=== PATIENT | male | born 1950 | race Caucasian/White ===

== ENCOUNTER 2016-12-23 12:17 | Emergency (ER) | payer MEDICARE, BC ==
[2016-12-23] MEDS ORDERED: Sodium Chloride 0.9% 10 ML Syringe FLUSH PRN (12:30)
[2016-12-23] MEDS ORDERED: Piperacillin/Tazobactam 4.5 GM in Sodium Chloride 0.9% 100 ML IV ONE (12:42)
[2016-12-23] MEDS ORDERED: Ciprofloxacin in D5W 400 MG in Premix Bag 1 BAG IV ONE ×2 (12:45)
--- NOTE | 2016-12-23 13:09 | EDM.PDOC ---
ED HPI GENERAL MEDICAL PROBLEM - General Chief Complaint: Respiratory Problem Stated Complaint: cough Time Seen by Provider: 12/23/16 12:26 Source of Information: Reports: Patient History Limitations: Reports: No Limitations - History of Present Illness INITIAL COMMENTS - FREE TEXT/NARRATIVE: Patient presents with chronic cough that started over the last couple of days. He was to see Dr. Scherer at the [facility] yesterday and started on Augmentin. It was noted December 16, on a visit with her that he had some parotid hypertrophy. This is still present. Still has a sore throat. He has additional complaints that include a sore throat, persistant cough, chills, fever, denies chest pain but does have increased SOB. He denies nausea/vomiting , no change in LOC, he is breathing quickly and febrile on presentation. He has a significant medical history including metastatic prostate CA, diastolic heart failure, CABG, htn, carotid artery disease, coronary artery disease, hyperlipidemia. Still drinks 1-2 drinks of jennifer nightly. No smoking. Onset: Gradual Duration: Getting Worse Location: Reports: Neck, Chest Quality: Reports: Ache Severity: Moderate Worsens with: Reports: Breathing, Movement Associated Symptoms: Reports: cough w sputum, Diaphoresis, Fever/Chills, Shortness of Breath - Related Data Allergies Allergy/AdvReac Type Severity Reaction Status Date / Time No Known Allergies Allergy Verified 12/23/16 12:39 Home Meds: Home Meds Atenolol [Tenormin] 0.5 tab PO BID 10/06/14 [History] Furosemide [Furosemide] 1 tab PO DAILY 10/06/14 [History] Simvastatin [Simvastatin] 1 tab PO DAILY 10/06/14 [History] Aspirin 81 mg PO BEDTIME 06/28/16 [History] Calcium Carbonate/Vitamin D3 [Calcium 500 + Vit D 400] 1 each PO DAILY 06/28/16 [History] Cholecalciferol (Vitamin D3) [Vitamin D3] 1,000 unit PO BID 06/28/16 [History] Leuprolide Acetate [Eligard] 22.5 mg SQ ASDIRECTED 06/28/16 [History] Multivitamin [Multivitamins] 1 each PO DAILY 06/28/16 [History] Nitroglycerin [Nitrostat] 0.4 mg SL Q5M PRN 06/28/16 [History] Ubidecarenone [Co Q-10] 50 mg PO DAILY 06/28/16 [History] Alprostadil [[place]] 1,000 mcg UR 12/23/16 [History] Amoxicillin/Potassium Clav [Amox-Clav 875-125 mg Tablet] 1 tab BID 12/23/16 [ History] Bicalutamide [Casodex] 50 mg PO DAILY 12/23/16 [History] Zolpidem [Ambien] 12/23/16 [History] predniSONE [Prednisone] 7.5 mg PO 12/23/16 [History] Past Medical History Cardiovascular History: Reports: Bypass, CAD, Heart Failure, High Cholesterol, Hypertension Respiratory History: Reports: Intubation, Difficult Other Respiratory History: dyspnea on exertion Musculoskeletal History: Reports: Other (See Below) Other Musculoskeletal History: Chronic right shoulder and left hip pain Endocrine/Metabolic History: Reports: Other (See Below) Other Endocrine/Metabolic History: hyperglycemia Oncologic (Cancer) History: Reports: Prostate, Other (See Below) Other Oncologic History: GI tract - Past Surgical History Cardiovascular Surgical History: Reports: Coronary Artery Bypass Social & Family History - Alcohol Use Days Per Week of Alcohol Use: 7 Number of Drinks Per Day: 2 Total Drinks Per Week: 14 - Recreational Drug Use Recreational Drug Use: No ED ROS GENERAL - Review of Systems Review Of Systems: See Below Constitutional: Reports: Fever, Chills HEENT: Reports: No Symptoms Respiratory: Reports: Shortness of Breath Cardiovascular: Reports: Dyspnea on Exertion Endocrine: Reports: No Symptoms GI/Abdominal: Reports: No Symptoms : Reports: No Symptoms Musculoskeletal: Reports: No Symptoms Skin: Reports: No Symptoms Neurological: Reports: No Symptoms Psychiatric: Reports: No Symptoms Hematologic/Lymphatic: Reports: No Symptoms Immunologic: Reports: No Symptoms ED EXAM, GENERAL - Physical Exam Exam: See Below Exam Limited By: No Limitations General Appearance: Alert, WD/WN, Mild Distress Eye Exam: Bilateral Eye: EOMI, PERRL Ears: Normal External Exam, Normal Canal, Hearing Grossly Normal, Normal TMs Nose: Normal Inspection Throat/Mouth: Normal Inspection, Normal Oropharynx Head: Atraumatic, Normocephalic Neck: Non-Tender, Other (parotid hypertrophy) Respiratory/Chest: No Respiratory Distress, No Accessory Muscle Use, Chest Non- Tender, Rhonchi (minimal with scattered sounds that improved post cough) Cardiovascular: Regular Rate, Rhythm, No Gallop, No JVD, No Murmur Peripheral Pulses: 1+: Posterior Tibial (L), Posterior Tibial (R), Dorsalis Pedis (L), Dorsalis Pedis (R) GI/Abdominal: Non-Tender, No Abnormal Bruit, Distended, Rigid Extremities: Normal Range of Motion, Non-Tender, Pedal Edema, Slow Capillary Refill, Joint Swelling Neurological: Alert, Oriented, CN II-XII Intact, Normal Cognition, Normal Gait, Normal Reflexes, No Motor/Sensory Deficits Psychiatric: Normal Affect, Normal Mood Skin Exam: Warm, Dry, Intact, Normal Color, No Rash Course - Vital Signs Last Recorded V/S: Last Vital Signs Temp 39.0 C H 12/23/16 14:52 Pulse 82 12/23/16 14:52 Resp 32 H 12/23/16 14:52 BP 112/64 12/23/16 14:52 Pulse Ox 91 L 12/23/16 15:15 - Orders/Labs/Meds Orders: Active Orders 24 hr Category Date Time Status EKG 12 Lead [EKG Documentation Completion] [] ROUTINE Care 12/23/16 12:30 Active Oxygen Therapy Adult [Oxygen Therapy, ED] [] Care 12/23/16 15:11 Ordered ASDIRECTED RT Aerosol Therapy [RC] ASDIRECTED Care 12/23/16 14:22 Active Chest 2V [CR] Stat Exams 12/23/16 12:26 Taken CULTURE BLOOD [BC] Stat Lab 12/23/16 12:45 Received CULTURE BLOOD [BC] Stat Lab 12/23/16 12:54 Received Sodium Chloride 0.9% [Saline Flush] Med 12/23/16 12:30 Active 10 ml FLUSH ASDIRECTED PRN Blood Culture x2 Reflex Set [OM.PC] Stat Oth 12/23/16 12:26 Ordered Saline Lock Insert [OM.PC] Routine Oth 12/23/16 12:30 Ordered Medication Orders Sodium Chloride (Saline Flush) 10 ml FLUSH ASDIRECTED PRN PRN Reason: Keep Vein Open Labs: Laboratory Tests 12/23/16 12/23/16 12/23/16 Range/Units 12:45 12:45 12:45 WBC 11.2 H (4.0-10.0) x10^3/uL RBC 4.58 (4.5-6.0) x10^6/uL Hgb 14.3 (14.0-18.0) g/dL Hct 43.0 (40.0-52.0) % MCV 93.9 H (78.0-93.0) fL MCH 31.2 (26.0-32.0) pg MCHC 33.3 (32.0-36.0) g/dL RDW Coeff of Ebenezer 14.4 (10.0-15.0) % Plt Count 146 (130-400) x10^3/uL Neut % (Auto) 82.2 H (50.0-80.0) % Lymph % (Auto) 9.0 L (25.0-50.0) % [place] % (Auto) 7.4 (2.0-11.0) % Eos % (Auto) 1.0 (0.0-4.0) % Baso % (Auto) 0.4 (0.2-1.2) % PT 11.0 (10.0-12.8) SEC INR 1.0 L (2.0-3.5) D-Dimer, Quantitative 0.53 (<=0.58) mg/LFEU POC ABG pH (7.35-7.45) POC ABG pCO2 (35-45) mmHG POC ABG pO2 (80-105) mmHG POC ABG HCO3 (22-26) mmol/L POC ABG Total CO2 (23-27) mmol/L POC ABG O2 Sat (95-98) % POC ABG Base Excess (-2-3) mmol/L POC FiO2 Sodium 141 (136-145) mmol/L Potassium 4.2 (3.5-5.1) mmol/L Chloride 103 (98-107) mmol/L Carbon Dioxide 28 (21-32) mmol/L BUN 16 (7-18) mg/dL Creatinine 1.3 (0.70-1.30) mg/dL Est Cr Clr Drug Dosing TNP Estimated GFR (MDRD) 55 Glucose 124 H (74-106) mg/dL Lactic Acid (0.4-2.0) mmol/L Calcium 8.9 (8.5-10.1) mg/dL Corrected Calcium 8.50 (8.5-10.1) mg/dL Total Bilirubin 1.3 H (0.2-1.0) mg/dL AST 37 (15-37) U/L ALT 49 (16-63) U/L Alkaline Phosphatase 120 H (46-116) U/L Creatine Kinase 41 (39-308) U/L Creatine Kinase Index TNP CK-MB (CK-2) TNP Troponin I < 0.017 (<=0.056) ng/mL C-Reactive Protein (<=0.9) mg/dL B-Natriuretic Peptide 671 H (<=125) pg/mL Total Protein 7.6 (6.4-8.2) g/dL Albumin 4.5 (3.4-5.0) g/dL Globulin 3.1 Albumin/Globulin Ratio 1.45 TSH, Ultra Sensitive 2.624 (0.358-3.74) uIU/mL POC Result Comm Urine Color (YELLOW) Urine Appearance (CLEAR) Urine pH (5.0-8.0) Ur Specific [place] Urine Protein (NEGATIVE) mg/dL Urine Glucose (UA) (NEGATIVE) mg/dL Urine Ketones (NEGATIVE) mg/dL Urine Occult Blood (NEGATIVE) Urine Nitrite (NEGATIVE) Urine Bilirubin (NEGATIVE) Urine Urobilinogen (0.2) EU/dL Ur Leukocyte Esterase (NEGATIVE) Urine RBC (NOT SEEN) /HPF Urine WBC (NOT SEEN) /HPF Ur Squamous Epith Cells (NEGATIVE) /HPF Urine Bacteria (NEGATIVE) /HPF Urine Mucus (NEGATIVE) /LPF 12/23/16 12/23/16 12/23/16 Range/Units 12:45 13:06 13:30 WBC (4.0-10.0) x10^3/uL RBC (4.5-6.0) x10^6/uL Hgb (14.0-18.0) g/dL Hct (40.0-52.0) % MCV (78.0-93.0) fL MCH (26.0-32.0) pg MCHC (32.0-36.0) g/dL RDW Coeff of Ebenezer (10.0-15.0) % Plt Count (130-400) x10^3/uL Neut % (Auto) (50.0-80.0) % Lymph % (Auto) (25.0-50.0) % [place] % (Auto) (2.0-11.0) % Eos % (Auto) (0.0-4.0) % Baso % (Auto) (0.2-1.2) % PT (10.0-12.8) SEC INR (2.0-3.5) D-Dimer, Quantitative (<=0.58) mg/LFEU POC ABG pH 7.435 (7.35-7.45) POC ABG pCO2 35 (35-45) mmHG POC ABG pO2 44 L* (80-105) mmHG POC ABG HCO3 23 (22-26) mmol/L POC ABG Total CO2 24 (23-27) mmol/L POC ABG O2 Sat 82 L (95-98) % POC ABG Base Excess -1 (-2-3) mmol/L POC FiO2 0.21 Sodium (136-145) mmol/L Potassium (3.5-5.1) mmol/L Chloride (98-107) mmol/L Carbon Dioxide (21-32) mmol/L BUN (7-18) mg/dL Creatinine (0.70-1.30) mg/dL Est Cr Clr Drug Dosing Estimated GFR (MDRD) Glucose (74-106) mg/dL Lactic Acid 1.4 (0.4-2.0) mmol/L Calcium (8.5-10.1) mg/dL Corrected Calcium (8.5-10.1) mg/dL Total Bilirubin (0.2-1.0) mg/dL AST (15-37) U/L ALT (16-63) U/L Alkaline Phosphatase (46-116) U/L Creatine Kinase (39-308) U/L Creatine Kinase Index CK-MB (CK-2) Troponin I (<=0.056) ng/mL C-Reactive Protein (<=0.9) mg/dL B-Natriuretic Peptide (<=125) pg/mL Total Protein (6.4-8.2) g/dL Albumin (3.4-5.0) g/dL Globulin Albumin/Globulin Ratio TSH, Ultra Sensitive (0.358-3.74) uIU/mL POC Result Comm Called critical res Urine Color Yellow (YELLOW) Urine Appearance Clear (CLEAR) Urine pH 5.0 (5.0-8.0) Ur Specific [place] 1.010 Urine Protein Negative (NEGATIVE) mg/dL Urine Glucose (UA) Negative (NEGATIVE) mg/dL Urine Ketones Negative (NEGATIVE) mg/dL Urine Occult Blood Negative (NEGATIVE) Urine Nitrite Negative (NEGATIVE) Urine Bilirubin Negative (NEGATIVE) Urine Urobilinogen 0.2 (0.2) EU/dL Ur Leukocyte Esterase Negative (NEGATIVE) Urine RBC 0-5 (NOT SEEN) /HPF Urine WBC 0-5 (NOT SEEN) /HPF Ur Squamous Epith Cells Not seen (NEGATIVE) /HPF Urine Bacteria Rare (NEGATIVE) /HPF Urine Mucus Not seen (NEGATIVE) /LPF 12/23/16 Range/Units 13:45 WBC (4.0-10.0) x10^3/uL RBC (4.5-6.0) x10^6/uL Hgb (14.0-18.0) g/dL Hct (40.0-52.0) % MCV (78.0-93.0) fL MCH (26.0-32.0) pg MCHC (32.0-36.0) g/dL RDW Coeff of Ebenezer (10.0-15.0) % Plt Count (130-400) x10^3/uL Neut % (Auto) (50.0-80.0) % Lymph % (Auto) (25.0-50.0) % [place] % (Auto) (2.0-11.0) % Eos % (Auto) (0.0-4.0) % Baso % (Auto) (0.2-1.2) % PT (10.0-12.8) SEC INR (2.0-3.5) D-Dimer, Quantitative (<=0.58) mg/LFEU POC ABG pH (7.35-7.45) POC ABG pCO2 (35-45) mmHG POC ABG pO2 (80-105) mmHG POC ABG HCO3 (22-26) mmol/L POC ABG Total CO2 (23-27) mmol/L POC ABG O2 Sat (95-98) % POC ABG Base Excess (-2-3) mmol/L POC FiO2 Sodium (136-145) mmol/L Potassium (3.5-5.1) mmol/L Chloride (98-107) mmol/L Carbon Dioxide (21-32) mmol/L BUN (7-18) mg/dL Creatinine (0.70-1.30) mg/dL Est Cr Clr Drug Dosing Estimated GFR (MDRD) Glucose (74-106) mg/dL Lactic Acid (0.4-2.0) mmol/L Calcium (8.5-10.1) mg/dL Corrected Calcium (8.5-10.1) mg/dL Total Bilirubin (0.2-1.0) mg/dL AST (15-37) U/L ALT (16-63) U/L Alkaline Phosphatase (46-116) U/L Creatine Kinase (39-308) U/L Creatine Kinase Index CK-MB (CK-2) Troponin I (<=0.056) ng/mL C-Reactive Protein 2.1 H (<=0.9) mg/dL B-Natriuretic Peptide (<=125) pg/mL Total Protein (6.4-8.2) g/dL Albumin (3.4-5.0) g/dL Globulin Albumin/Globulin Ratio TSH, Ultra Sensitive (0.358-3.74) uIU/mL POC Result Comm Urine Color (YELLOW) Urine Appearance (CLEAR) Urine pH (5.0-8.0) Ur Specific [place] Urine Protein (NEGATIVE) mg/dL Urine Glucose (UA) (NEGATIVE) mg/dL Urine Ketones (NEGATIVE) mg/dL Urine Occult Blood (NEGATIVE) Urine Nitrite (NEGATIVE) Urine Bilirubin (NEGATIVE) Urine Urobilinogen (0.2) EU/dL Ur Leukocyte Esterase (NEGATIVE) Urine RBC (NOT SEEN) /HPF Urine WBC (NOT SEEN) /HPF Ur Squamous Epith Cells (NEGATIVE) /HPF Urine Bacteria (NEGATIVE) /HPF Urine Mucus (NEGATIVE) /LPF Meds: Medications Generic Name Dose Route Start Last Admin Trade Name Freq PRN Reason Stop Dose Admin Sodium Chloride 10 ml 12/23/16 12:30 Saline Flush FLUSH ASDIRECTED PRN Keep Vein Open Discontinued Medications Generic Name Dose Route Start Last Admin Trade Name Freq PRN Reason Stop Dose Admin Albuterol/Ipratropium 3 ml 12/23/16 14:22 12/23/16 14:56 Duoneb 3.0-0.5 Mg/3 Ml NEB 12/23/16 14:23 3 ml ONETIME ONE Administration Ciprofloxacin/Dextrose 400 mg/ 200 mls @ 200 mls/hr 12/23/16 12:45 12/23/16 13:47 Premix IV 12/23/16 13:44 200 mls/hr ONETIME ONE Administration Piperacillin Sod/Tazobactam 100 mls @ 200 mls/hr 12/23/16 12:42 12/23/16 13: 09 Sod 4.5 gm/ Sodium Chloride IV 12/23/16 13:11 200 mls/hr ONETIME ONE Administration Vancomycin HCl 1,500 mg/ 250 mls @ 167 mls/hr 12/23/16 12:42 12/23/16 14:57 Sodium Chloride IV 12/23/16 14:11 167 mls/hr ONETIME ONE Administration - Re-Assessments/Exams Free Text/Narrative Re-Assessment/Exam: 12/23/16 15:05 x-ray reviewed, possible mass in upper right chest? Labs reviewed. D-dimer is negative, hypoxic. 12/23/16 15:[address] Review [address] Dr[address] Scherer, she is recommending he go to [facility] for further testing to rule out additional malignancy issues, visited with Dr. Velasquez in [place] at [place]. He will accept. Departure - Departure Time of Disposition: 15:40 Disposition: DC/Tfer to [facility] 02 Condition: Fair Clinical Impression: Hypoxia - Discharge Information Referrals: Linnea Scherer MD [Primary Care Provider] - Forms: ED Department Discharge, Interfacility Transfer EMTALA - My Orders Last 24 Hours: My Active Orders 12/23/16 12:26 Chest 2V [CR] Stat Blood Culture x2 Reflex Set [OM.PC] Stat 12/23/16 12:30 EKG 12 Lead [EKG Documentation Completion] [RC] ROUTINE Sodium Chloride 0.9% [Saline Flush] 10 ml FLUSH ASDIRECTED PRN Saline Lock Insert [OM.PC] Routine 12/23/16 12:45 CULTURE BLOOD [BC] Stat 12/23/16 12:54 CULTURE BLOOD [BC] Stat 12/23/16 14:22 RT Aerosol Therapy [RC] ASDIRECTED 12/23/16 15:11 Oxygen Therapy Adult [Oxygen Therapy, ED] [RC] ASDIRECTED - Assessment/Plan Last 24 Hours: My Active Orders 12/23/16 12:26 Chest 2V [CR] Stat Blood Culture x2 Reflex Set [OM.PC] Stat 12/23/16 12:30 EKG 12 Lead [EKG Documentation Completion] [RC] ROUTINE Sodium Chloride 0.9% [Saline Flush] 10 ml FLUSH ASDIRECTED PRN Saline Lock Insert [OM.PC] Routine 12/23/16 12:45 CULTURE BLOOD [BC] Stat 12/23/16 12:54 CULTURE BLOOD [BC] Stat 12/23/16 14:22 RT Aerosol Therapy [RC] ASDIRECTED 12/23/16 15:11 Oxygen Therapy Adult [Oxygen Therapy, ED] [RC] ASDIRECTED
[2016-12-23 13:24] LABS: CHLORIDE,CL 103 mmol/L (98-107); SODIUM,NA 141 mmol/L (136-145)
[2016-12-23] MEDS ORDERED: Albuterol/Ipratropium 3.0-0.5 MG/3 ML Neb Soln NEB ONE (14:22)
[2016-12-23 14:52] VITALS: BP 112/64
== END 2016-12-23 15:57 | disposition short-term general hospital (02) ==
LOC: VM.ED 12:17
DX: R09.02 Hypoxemia (principal); I11.0 Hypertensive heart disease with heart failure; I50.9 Heart failure, unspecified; I25.10 Atherosclerotic heart disease of native coronary artery without angina pectoris; Z95.1 Presence of aortocoronary bypass graft; Z85.46 Personal history of malignant neoplasm of prostate; Z79.82 Long term (current) use of aspirin; Z79.899 Other long term (current) drug therapy
CPT/HCPCS: 36415; 36600; 71020; 80053; 81001; 82550; 82803; 83605; 83880; 84443; 84484; 85025; 85379; 85610; 86140; 87040; 93005; 94640; 96365; 96367; 99285; J0744; J2543; J3370; J7050

== ENCOUNTER 2017-09-29 11:04 | Emergency (ER) | payer MEDICARE, BC ==
[2017-09-29] MEDS ORDERED: Sodium Chloride 0.9% 10 ML Syringe FLUSH PRN (11:10)
[2017-09-29] MEDS ORDERED: Aspirin 81 MG Tab.Chew PO ONE (11:11)
[2017-09-29] MEDS ORDERED: Nitroglycerin 0.4 MG Tab.SL SL ONE (11:23)
[2017-09-29 11:57] LABS: CHLORIDE,CL 101 mmol/L (98-107); SODIUM,NA 137 mmol/L (136-145)
[2017-09-29] MEDS ORDERED: Morphine 4 MG/ML Syringe IVPUSH ONE (13:07)
[2017-09-29] MEDS ORDERED: Nitroglycerin 0.4 MG Tab.SL SL PRN (13:15)
[2017-09-29] MEDS ORDERED: Heparin Sodium 5,000 Units/ML Vial IVPUSH PRN (13:43)
[2017-09-29] MEDS ORDERED: Heparin Sodium/0.45% NaCl 25,000 UNITS/500 ML BAG IV SCH (14:00)
--- NOTE | 2017-09-29 14:26 | EDM.PDOC ---
ED HPI GENERAL MEDICAL PROBLEM - General Chief Complaint: Cardiovascular Problem Time Seen by Provider: 09/29/17 11:12 Source of Information: Reports: Patient History Limitations: Reports: No Limitations - History of Present Illness INITIAL COMMENTS - FREE TEXT/NARRATIVE: Pt. presents to ER with complaints of chest pain, substernal in nature. Pt. states that he has been experiencing chest discomfort, intermittent in nature and worse with activity, for the past 3 days. Pt. states that the discomfort does not radiate. Denies shortness of breath. No weakness. Pt. was seen in clinic and was subsequently sent to ER for evaluation. He has a history of CAD with CABG. He states that this is similar to the discomfort he experienced with this. Onset: Today Onset Date: 09/25/17 Location: Reports: Chest Quality: Reports: Ache, Burning Severity: Moderate Associated Symptoms: Reports: Chest Pain Chest Pain Score (Numeric/FACES): 2 - Related Data Allergies Allergy/AdvReac Type Severity Reaction Status Date / Time No Known Allergies Allergy Verified 09/29/17 13:37 Home Meds: Home Meds Atenolol [Tenormin] 0.5 tab PO BID 10/06/14 [History] Furosemide 1 tab PO ASDIRECTED 10/06/14 [History] Simvastatin 1 tab PO DAILY 10/06/14 [History] Aspirin 81 mg PO BEDTIME 06/28/16 [History] Calcium Carbonate/Vitamin D3 [Calcium 500 + Vit D 400] 1 each PO DAILY 06/28/16 [History] Cholecalciferol (Vitamin D3) [Vitamin D3] 1,000 unit PO BID 06/28/16 [History] Leuprolide Acetate [Eligard] 22.5 mg SQ ASDIRECTED 06/28/16 [History] Multivitamin [Multivitamins] 1 each PO DAILY 06/28/16 [History] Nitroglycerin [Nitrostat] 0.4 mg SL Q5M PRN 06/28/16 [History] Ubidecarenone [Co Q-10] 50 mg PO DAILY 06/28/16 [History] Alprostadil [[place]] 1,000 mcg UR 12/23/16 [History] Amoxicillin/Potassium Clav [Amox-Clav 875-125 mg Tablet] 1 tab BID 12/23/16 [ History] Bicalutamide [Casodex] 50 mg PO DAILY 12/23/16 [History] Zolpidem [Ambien] 5 mg PO ASDIRECTED PRN 12/23/16 [History] Past Medical History Cardiovascular History: Reports: Bypass, CAD, Heart Failure, High Cholesterol, Hypertension Respiratory History: Reports: Intubation, Difficult Other Respiratory History: dyspnea on exertion Musculoskeletal History: Reports: Other (See Below) Other Musculoskeletal History: Chronic right shoulder and left hip pain Endocrine/Metabolic History: Reports: Other (See Below) Other Endocrine/Metabolic History: hyperglycemia Oncologic (Cancer) History: Reports: Prostate, Other (See Below) Other Oncologic History: GI tract - Past Surgical History Cardiovascular Surgical History: Reports: Coronary Artery Bypass Social & Family History - Tobacco Use Smoking Status *Q: Unknown Ever Smoked - Alcohol Use Days Per Week of Alcohol Use: 7 Number of Drinks Per Day: 2 Total Drinks Per Week: 14 - Recreational Drug Use Recreational Drug Use: No ED ROS GENERAL - Review of Systems Review Of Systems: See Below Constitutional: Reports: No Symptoms HEENT: Reports: No Symptoms Respiratory: Reports: No Symptoms Cardiovascular: Reports: Chest Pain, Blood Pressure Problem Endocrine: Reports: No Symptoms GI/Abdominal: Reports: No Symptoms : Reports: No Symptoms Musculoskeletal: Reports: No Symptoms Skin: Reports: No Symptoms Neurological: Reports: No Symptoms Psychiatric: Reports: No Symptoms Hematologic/Lymphatic: Reports: No Symptoms Immunologic: Reports: No Symptoms ED EXAM, GENERAL - Physical Exam Exam: See Below Exam Limited By: No Limitations General Appearance: Alert, WD/WN, No Apparent Distress Eye Exam: Bilateral Eye: EOMI, Normal Fundi, Normal Inspection, PERRL Ears: Normal External Exam, Normal Canal, Hearing Grossly Normal, Normal TMs Ear Exam: Bilateral Ear: Auricle Normal, Canal Normal, TM normal Nose: Normal Inspection, Normal Mucosa, No Blood Throat/Mouth: Normal Inspection, Normal Lips, Normal Teeth, Normal Gums, Normal Oropharynx, Normal Voice, No Airway Compromise Head: Atraumatic, Normocephalic Neck: Normal Inspection, Supple, Non-Tender, Full Range of Motion Respiratory/Chest: No Respiratory Distress, Lungs Clear, Normal Breath Sounds, No Accessory Muscle Use, Chest Non-Tender Cardiovascular: Regular Rate, Rhythm, No Edema, No JVD, No Murmur, No Rub GI/Abdominal: Normal Bowel Sounds, Soft, Non-Tender, No Organomegaly, No Distention, No Abnormal Bruit, No Mass (Male) Exam: Deferred Rectal (Males) Exam: Deferred Back Exam: Normal Inspection, Full Range of Motion, NT Extremities: Normal Inspection, Normal Range of Motion, Non-Tender, Normal Capillary Refill, No Pedal Edema Neurological: Alert, Oriented, CN II-XII Intact, Normal Cognition, Normal Gait, Normal Reflexes, No Motor/Sensory Deficits Psychiatric: Normal Affect, Normal Mood Skin Exam: Warm, Dry, Intact, Normal Color, No Rash Lymphatic: No Adenopathy EKG INTERPRETATION Rhythm: NSR Arvin: Normal P-Wave: Present QRS: Normal ST-T: Normal QT: Normal Course - Vital Signs Last Recorded V/S: Last Vital Signs Temp 36.1 C 09/29/17 13:31 Pulse 69 09/29/17 13:31 Resp 14 09/29/17 13:31 BP 151/88 H 09/29/17 13:31 Pulse Ox 98 09/29/17 13:31 - Orders/Labs/Meds Orders: Active Orders 24 hr Category Date Time Status Patient Status [ADT] Routine ADT 09/29/17 12:50 Active EKG 12 Lead [EKG Documentation Completion] [RC] STAT Care 09/29/17 13:14 Active EKG 12 Lead [EKG Documentation Completion] [RC] STAT Care 09/29/17 13:15 Active EKG Documentation Completion [RC] STAT Care 09/29/17 11:10 Active Chest 1V Frontal [CR] Stat Exams 09/29/17 11:10 Taken CBC W/O DIFF,HEMOGRAM [HEME] Q3D Lab 09/30/17 07:00 Ordered CBC W/O DIFF,HEMOGRAM [HEME] Q3D Lab 10/03/17 07:00 Ordered CBC W/O DIFF,HEMOGRAM [HEME] Q3D Lab 10/06/17 07:00 Ordered CBC W/O DIFF,HEMOGRAM [HEME] Q3D Lab 10/09/17 07:00 Ordered CBC W/O DIFF,HEMOGRAM [HEME] Q3D Lab 10/12/17 07:00 Ordered CBC W/O DIFF,HEMOGRAM [HEME] Q3D Lab 10/15/17 07:00 Ordered CBC W/O DIFF,HEMOGRAM [HEME] Q3D Lab 10/18/17 07:00 Ordered Heparin Sodium Med 09/29/17 13:43 Active 4,000 units IVPUSH .BOLUS PRN Heparin Sodium/0.45% NaCl [Heparin 25,000 Units in 1/2 Med 09/29/17 14:00 Active NS 500 ML] 25,000 units in 500 ml IV TITRATE Nitroglycerin [Nitrostat] Med 09/29/17 13:15 Active 0.4 mg SL Q5M PRN Sodium Chloride 0.9% [Saline Flush] Med 09/29/17 11:10 Active 10 ml FLUSH ASDIRECTED PRN Peripheral IV Insertion Adult [OM.PC] Routine Oth 09/29/17 11:10 Ordered Medication Orders Heparin Sodium (Porcine) (Heparin Sodium) 4,000 units IVPUSH .BOLUS PRN PRN Reason: Chest Pain Last Admin: 09/29/17 13:58 Dose: 4,000 units Heparin Sodium/Sodium Chloride (Heparin 25,000 Units In 1/2 Ns 500 Ml) 25,000 units in 500 mls @ 20 mls/hr IV TITRATE NEO; Protocol Nitroglycerin (Nitrostat) 0.4 mg SL Q5M PRN PRN Reason: Chest Pain Stop: 09/30/17 13:15 Last Admin: 09/29/17 13:03 Dose: 0.4 mg Sodium Chloride (Saline Flush) 10 ml FLUSH ASDIRECTED PRN PRN Reason: Keep Vein Open Labs: Laboratory Tests 09/29/17 09/29/17 09/29/17 Range/Units 11:12 11:12 11:12 WBC 7.3 (4.0-10.0) x10^3/uL RBC 4.70 (4.5-6.0) x10^6/uL Hgb 14.4 (14.0-18.0) g/dL Hct 42.2 (40.0-52.0) % MCV 89.8 D (78.0-93.0) fL MCH 30.6 (26.0-32.0) pg MCHC 34.1 (32.0-36.0) g/dL RDW Coeff of Ebenezer 14.1 (10.0-15.0) % Plt Count 127 L (130-400) x10^3/uL Neut % (Auto) 73.2 (50.0-80.0) % Lymph % (Auto) 14.3 L (25.0-50.0) % Sierra % (Auto) 10.3 (2.0-11.0) % Eos % (Auto) 1.8 (0.0-4.0) % Baso % (Auto) 0.4 (0.2-1.2) % PT 10.2 (9.8-11.8) SEC INR 0.9 L (2.0-3.5) Sodium 137 (136-145) mmol/L Potassium 4.0 (3.5-5.1) mmol/L Chloride 101 (98-107) mmol/L Carbon Dioxide 29 (21-32) mmol/L Anion Gap 11.0 (10-20) mmol/L BUN 14 (7-18) mg/dL Creatinine 1.0 (0.70-1.30) mg/dL Est Cr Clr Drug Dosing TNP Estimated GFR (MDRD) > 60 Glucose 137 H (74-106) mg/dL Calcium 9.6 (8.5-10.1) mg/dL Corrected Calcium 9.36 (8.5-10.1) mg/dL Phosphorus 3.8 (2.6-4.7) mg/dL Magnesium 2.0 (1.8-2.4) mg/dL Total Bilirubin 0.7 (0.2-1.0) mg/dL AST 25 (15-37) U/L ALT 42 (16-63) U/L Alkaline Phosphatase 116 (46-116) U/L POC Troponin I (0.00-0.08) ng/mL C-Reactive Protein 0.2 (<=0.9) mg/dL Total Protein 7.8 (6.4-8.2) g/dL Albumin 4.3 (3.4-5.0) g/dL Globulin 3.5 Albumin/Globulin Ratio 1.23 TSH, Ultra Sensitive 1.676 (0.358-3.74) uIU/mL 09/29/17 Range/Units 11:25 WBC (4.0-10.0) x10^3/uL RBC (4.5-6.0) x10^6/uL Hgb (14.0-18.0) g/dL Hct (40.0-52.0) % MCV (78.0-93.0) fL MCH (26.0-32.0) pg MCHC (32.0-36.0) g/dL RDW Coeff of Ebenezer (10.0-15.0) % Plt Count (130-400) x10^3/uL Neut % (Auto) (50.0-80.0) % Lymph % (Auto) (25.0-50.0) % Sierra % (Auto) (2.0-11.0) % Eos % (Auto) (0.0-4.0) % Baso % (Auto) (0.2-1.2) % PT (9.8-11.8) SEC INR (2.0-3.5) Sodium (136-145) mmol/L Potassium (3.5-5.1) mmol/L Chloride (98-107) mmol/L Carbon Dioxide (21-32) mmol/L Anion Gap (10-20) mmol/L BUN (7-18) mg/dL Creatinine (0.70-1.30) mg/dL Est Cr Clr Drug Dosing Estimated GFR (MDRD) Glucose (74-106) mg/dL Calcium (8.5-10.1) mg/dL Corrected Calcium (8.5-10.1) mg/dL Phosphorus (2.6-4.7) mg/dL Magnesium (1.8-2.4) mg/dL Total Bilirubin (0.2-1.0) mg/dL AST (15-37) U/L ALT (16-63) U/L Alkaline Phosphatase (46-116) U/L POC Troponin I 0.01 (0.00-0.08) ng/mL C-Reactive Protein (<=0.9) mg/dL Total Protein (6.4-8.2) g/dL Albumin (3.4-5.0) g/dL Globulin Albumin/Globulin Ratio TSH, Ultra Sensitive (0.358-3.74) uIU/mL Meds: Medications Generic Name Dose Route Start Last Admin Trade Name Freq PRN Reason Stop Dose Admin Heparin Sodium (Porcine) 4,000 units 09/29/17 13:43 09/29/17 13:58 Heparin Sodium IVPUSH 4,000 units .BOLUS PRN Administration Chest Pain Heparin Sodium/Sodium Chloride 25,000 units in 500 mls @ 20 mls/hr 09/29/17 14 :00 Heparin 25,000 Units In 1/2 Ns 500 Ml IV TITRATE NEO Protocol Nitroglycerin 0.4 mg 09/29/17 13:15 09/29/17 13:03 Nitrostat SL 09/30/17 13:15 0.4 mg Q5M PRN Administration Chest Pain Sodium Chloride 10 ml 09/29/17 11:10 Saline Flush FLUSH ASDIRECTED PRN Keep Vein Open Discontinued Medications Generic Name Dose Route Start Last Admin Trade Name Freq PRN Reason Stop Dose Admin Aspirin 324 mg 09/29/17 11:11 09/29/17 11:28 Aspirin PO 09/29/17 11:12 324 mg ONETIME ONE Administration Morphine Sulfate 4 mg 09/29/17 13:07 Morphine IVPUSH 09/29/17 13:08 ONETIME ONE Nitroglycerin 0.4 mg 09/29/17 11:23 09/29/17 11:29 Nitrostat SL 09/29/17 11:24 0.4 mg ONETIME ONE Administration - Re-Assessments/Exams Free Text/Narrative Re-Assessment/Exam: 09/29/17 14:27 Pt. was 5 on arrival. was given aspirin and 1 dose of SL nitro. Pain resolved. Pain increased to "8". Was given another dose of nitro SL. Pain decreased to 0. He was subsequently heparinized. Decision was made to transfer pt. to [facility]. Departure - Departure Time of Disposition: 14:31 Disposition: DC/Tfer to Acute Hospital 02 Reason for Transfer *Q: Other (unstable angina) Clinical Impression: Unstable angina Referrals: Linnea Scherer MD [Primary Care Provider] - Forms: ED Department Discharge, Interfacility Transfer EMTALA - My Orders Last 24 Hours: My Active Orders 09/29/17 11:10 EKG Documentation Completion [RC] STAT Chest 1V Frontal [CR] Stat Sodium Chloride 0.9% [Saline Flush] 10 ml FLUSH ASDIRECTED PRN Peripheral IV Insertion Adult [OM.PC] Routine 09/29/17 12:50 Patient Status [ADT] Routine 09/29/17 13:14 EKG 12 Lead [EKG Documentation Completion] [RC] STAT 09/29/17 13:15 EKG 12 Lead [EKG Documentation Completion] [RC] STAT Nitroglycerin [Nitrostat] 0.4 mg SL Q5M PRN 09/29/17 13:43 Heparin Sodium 4,000 units IVPUSH .BOLUS PRN 09/29/17 14:00 Heparin Sodium/0.45% NaCl [Heparin 25,000 Units in 1/2 NS 500 ML] 25,000 units in 500 ml IV TITRATE 09/30/17 07:00 CBC W/O DIFF,HEMOGRAM [HEME] Q3D 10/03/17 07:00 CBC W/O DIFF,HEMOGRAM [HEME] Q3D 10/06/17 07:00 CBC W/O DIFF,HEMOGRAM [HEME] Q3D 10/09/17 07:00 CBC W/O DIFF,HEMOGRAM [HEME] Q3D 10/12/17 07:00 CBC W/O DIFF,HEMOGRAM [HEME] Q3D 10/15/17 07:00 CBC W/O DIFF,HEMOGRAM [HEME] Q3D 10/18/17 07:00 CBC W/O DIFF,HEMOGRAM [HEME] Q3D - Assessment/Plan Last 24 Hours: My Active Orders 09/29/17 11:10 EKG Documentation Completion [RC] STAT Chest 1V Frontal [CR] Stat Sodium Chloride 0.9% [Saline Flush] 10 ml FLUSH ASDIRECTED PRN Peripheral IV Insertion Adult [OM.PC] Routine 09/29/17 12:50 Patient Status [ADT] Routine 09/29/17 13:14 EKG 12 Lead [EKG Documentation Completion] [RC] STAT 09/29/17 13:15 EKG 12 Lead [EKG Documentation Completion] [RC] STAT Nitroglycerin [Nitrostat] 0.4 mg SL Q5M PRN 09/29/17 13:43 Heparin Sodium 4,000 units IVPUSH .BOLUS PRN 09/29/17 14:00 Heparin Sodium/0.45% NaCl [Heparin 25,000 Units in 1/2 NS 500 ML] 25,000 units in 500 ml IV TITRATE 09/30/17 07:00 CBC W/O DIFF,HEMOGRAM [HEME] Q3D 10/03/17 07:00 CBC W/O DIFF,HEMOGRAM [HEME] Q3D 10/06/17 07:00 CBC W/O DIFF,HEMOGRAM [HEME] Q3D 10/09/17 07:00 CBC W/O DIFF,HEMOGRAM [HEME] Q3D 10/12/17 07:00 CBC W/O DIFF,HEMOGRAM [HEME] Q3D 10/15/17 07:00 CBC W/O DIFF,HEMOGRAM [HEME] Q3D 10/18/17 07:00 CBC W/O DIFF,HEMOGRAM [HEME] Q3D Assessment:: unstable angina Plan: Transfer-[facility]. Pt. will be transferred via [facility] ground ambulance.
[2017-09-29 14:27] VITALS: BP 163/84
== END 2017-09-29 14:50 | disposition short-term general hospital (02) ==
LOC: VM.ED 11:04 → VM.MS 12:50 → UNDOADMOB 12:50 → VM.ED 14:50
DX: I20.0 Unstable angina (principal); I11.0 Hypertensive heart disease with heart failure; I50.9 Heart failure, unspecified; Z79.899 Other long term (current) drug therapy
CPT/HCPCS: 36415; 71045; 80053; 83735; 84100; 84443; 84484; 85025; 85610; 86140; 93005; 96365; 96375; 99285; A9270; J1644

== ENCOUNTER 2024-07-23 07:18 | Day surgery (SDC) | payer MEDICARE, BC ==
[~2024-07-23 07:18] MED LIST: Brimonidine 0.2% Ophth Soln 5 ML Bottle ONE; Cyclopentolate 1% Opth Soln 2 ML Bottle EYELF SCH; Dexamethasone/Neomycin/Polymyxin B Ophth Oint 3.5 GM Tube ONE; Lidocaine 1% 2 ML ONE; Moxifloxacin 0.5% Ophth Soln 3 ML Bottle EYELF ONE; Phenylephrine 2.5% Ophth Soln 2 ML Bot EYELF SCH; Phenyleprhine/Ketorolac 4 ML Vial ONE; Povidone-Iodine 5% Sterile Ophth Soln 30 ML Bottle ONE; Proparacaine 0.5% Ophth Soln 15 ML Bottle ONE; Sodium Chloride 0.9% 10 ML Syringe FLUSH PRN; Tropicamide 1% Ophth Soln 3 ML Bottle EYELF SCH; acetaZOLAMIDE 500 MG Cap.ER PO SCH
[2024-07-23] MEDS: Tropicamide 1% Ophth Soln 3 ML Bottle EYELF SCH (07:30)
[2024-07-23] MEDS: Phenylephrine 2.5% Ophth Soln 2 ML Bot EYELF SCH (07:30)
[2024-07-23] MEDS ORDERED: fentaNYL 100 MCG/2 ML SDV ONE (07:31)
[2024-07-23] MEDS: Cyclopentolate 1% Opth Soln 2 ML Bottle EYELF SCH (07:31)
[2024-07-23] MEDS ORDERED: Midazolam 1 MG/ML 2 ML SDV ONE (07:32)
[2024-07-23] MEDS: Moxifloxacin 0.5% Ophth Soln 3 ML Bottle EYELF ONE ×2 (07:52→08:18)
[2024-07-23] MEDS: Balanced Salt Solution Ophth Irrig 500 ML Bottle IOCULAR ONE (08:18)
[2024-07-23] MEDS: Phenyleprhine/Ketorolac 4 ML Vial IO ONE (08:19)
[2024-07-23] MEDS: Lidocaine 1% PF 2 ML SDV INFILT ONE (08:19)
[2024-07-23] MEDS: Chondroitin Sulfate/Hyaluronate Sodium Ophth Inj 0.5 ML Syringe IOCULAR ONE (08:19)
[2024-07-23] MEDS: Povidone-Iodine 5% Sterile Ophth Soln 30 ML Bottle EYELF ONE (08:20)
[2024-07-23] MEDS: Brimonidine 0.2% Ophth Soln 5 ML Bottle EYELF ONE (08:20)
[2024-07-23] MEDS: Dexamethasone/Neomycin/Polymyxin B Ophth Oint 3.5 GM Tube EYELF ONE (08:20)
[2024-07-23] MEDS ORDERED: ceFAZolin 500 MG Vial ONE (08:30)
[2024-07-23] MEDS: acetaZOLAMIDE 500 MG Cap.ER PO SCH (08:47)
[2024-07-23 08:53] VITALS: BP 132/65; PULSE 64
== END 2024-07-23 09:02 | disposition home or self-care (01) ==
LOC: VM.SDS 07:18
PROVIDERS: ATTEND Ophthalmology
DX: E11.36 Type 2 diabetes mellitus with diabetic cataract (principal); H25.812 Combined forms of age-related cataract, left eye; I13.0 Hypertensive heart and chronic kidney disease with heart failure and stage 1 through stage 4 chronic kidney disease, or unspecified chronic kidney disease; E11.22 Type 2 diabetes mellitus with diabetic chronic kidney disease; N18.32 Chronic kidney disease, stage 3b; I50.42 Chronic combined systolic (congestive) and diastolic (congestive) heart failure; I48.92 Unspecified atrial flutter; E78.00 Pure hypercholesterolemia, unspecified; I25.810 Atherosclerosis of coronary artery bypass graft(s) without angina pectoris
CPT/HCPCS: 00142; 99100; A9270-GY; J0690; J1097; J2250; J3010; J3490

== ENCOUNTER 2024-08-03 08:38 | Day surgery (SDC) | payer MEDICARE, BC ==
[2024-08-03] MEDS: Lactated Ringers 1,000 ML IV SCH (08:51)
[2024-08-03] MEDS ORDERED: fentaNYL 100 MCG/2 ML SDV ONE (10:26)
[2024-08-03] MEDS ORDERED: Propofol 200 MG/20 ML SDV ONE ×2 (10:26)
[2024-08-03 11:31] VITALS: BP 186/92; PULSE 87
== END 2024-08-03 12:21 | disposition home or self-care (01) ==
LOC: VM.SDS 08:38
PROVIDERS: ATTEND Student in an Organized Health Care Education/Training Program
DX: Z12.11 Encounter for screening for malignant neoplasm of colon (principal); R19.5 Other fecal abnormalities; D12.8 Benign neoplasm of rectum; E11.22 Type 2 diabetes mellitus with diabetic chronic kidney disease; N18.31 Chronic kidney disease, stage 3a; D63.1 Anemia in chronic kidney disease; I13.0 Hypertensive heart and chronic kidney disease with heart failure and stage 1 through stage 4 chronic kidney disease, or unspecified chronic kidney disease; I50.42 Chronic combined systolic (congestive) and diastolic (congestive) heart failure; I25.10 Atherosclerotic heart disease of native coronary artery without angina pectoris; Z95.1 Presence of aortocoronary bypass graft; Z87.891 Personal history of nicotine dependence; I48.92 Unspecified atrial flutter; Z79.01 Long term (current) use of anticoagulants; Z79.899 Other long term (current) drug therapy; Z80.0 Family history of malignant neoplasm of digestive organs
CPT/HCPCS: 45385; J2704; J3010; J7120; 00811; 88305; 99100

== ENCOUNTER 2024-08-20 08:09 | Day surgery (SDC) | payer MEDICARE, BC ==
[~2024-08-20 08:09] MED LIST changes: -Cyclopentolate 1% Opth Soln 2 ML Bottle EYELF SCH; -Moxifloxacin 0.5% Ophth Soln 3 ML Bottle EYELF ONE; -Phenylephrine 2.5% Ophth Soln 2 ML Bot EYELF SCH; -Tropicamide 1% Ophth Soln 3 ML Bottle EYELF SCH; -acetaZOLAMIDE 500 MG Cap.ER PO SCH
[2024-08-20] MEDS: Cyclopentolate 1% Opth Soln 2 ML Bottle EYERT SCH (08:15)
[2024-08-20] MEDS: Phenylephrine 2.5% Ophth Soln 2 ML Bot EYERT SCH (08:15)
[2024-08-20] MEDS: Tropicamide 1% Ophth Soln 3 ML Bottle EYERT SCH (08:15)
[2024-08-20] MEDS: Moxifloxacin 0.5% Ophth Soln 3 ML Bottle EYERT ONE ×2 (08:40→09:43)
[2024-08-20] MEDS ORDERED: fentaNYL 100 MCG/2 ML SDV ONE (08:55)
[2024-08-20] MEDS ORDERED: Midazolam 1 MG/ML 2 ML SDV ONE (08:55)
[2024-08-20] MEDS: Povidone-Iodine 5% Sterile Ophth Soln 30 ML Bottle EYERT ONE (09:43)
[2024-08-20] MEDS: Balanced Salt Solution Ophth Irrig 500 ML Bottle IOCULAR ONE (09:45)
[2024-08-20] MEDS: Phenyleprhine/Ketorolac 4 ML Vial IO ONE ×2 (09:46)
[2024-08-20] MEDS: Lidocaine 1% PF 2 ML SDV INJECT ONE (09:46)
[2024-08-20] MEDS: Chondroitin Sulfate/Hyaluronate Sodium Ophth Inj 0.5 ML Syringe IOCULAR ONE (09:47)
[2024-08-20] MEDS: Brimonidine 0.2% Ophth Soln 5 ML Bottle EYERT ONE (09:47)
[2024-08-20] MEDS: Dexamethasone/Neomycin/Polymyxin B Ophth Oint 3.5 GM Tube EYERT ONE (09:48)
[2024-08-20] MEDS ORDERED: ceFAZolin 500 MG Vial ONE (09:51)
[2024-08-20] MEDS: acetaZOLAMIDE 500 MG Cap.ER PO ONE (10:10)
[2024-08-20 10:17] VITALS: BP 146/71; PULSE 62
== END 2024-08-20 10:40 | disposition home or self-care (01) ==
LOC: VM.SDS 08:09
PROVIDERS: ATTEND Ophthalmology
DX: E11.36 Type 2 diabetes mellitus with diabetic cataract (principal); H25.811 Combined forms of age-related cataract, right eye; E66.9 Obesity, unspecified; I12.9 Hypertensive chronic kidney disease with stage 1 through stage 4 chronic kidney disease, or unspecified chronic kidney disease; N18.32 Chronic kidney disease, stage 3b; Z88.8 Allergy status to other drugs, medicaments and biological substances; Z79.01 Long term (current) use of anticoagulants; Z68.33 Body mass index [BMI] 33.0-33.9, adult; Z79.899 Other long term (current) drug therapy; Z87.891 Personal history of nicotine dependence
CPT/HCPCS: 66984; A9270; J0690; J1097; J2003; J2250; J3010; J3490